=== PATIENT | male | born 1995 | race Caucasian/White ===

== ENCOUNTER 2018-03-22 16:59 | Emergency (ER) | payer OTHER, SELFPAY ==
--- NOTE | 2018-03-22 17:08 | DI.RAD.S_ITS ---
PROCEDURE: XR SOFT TISSUE NECK INDICATIONS: foreign body sensation TECHNIQUE: 2 views of the neck were acquired. COMPARISON: None. FINDINGS: Airway: The airway appears patent. Soft tissues: Prevertebral soft tissues are normal in thickness. The epiglottis and aryepiglottic folds appear normal. No soft tissue gas. Bones: No suspicious bony lesions. Visualized cervical spine is normally aligned. IMPRESSION: No gross tissue swelling. Airways patent. No radiopaque foreign body is seen. Dictated by: Jason Cordova M.D. on 03/22/2018 at 17:35 Approved by: Jason Cordova M.D. on 03/22/2018 at 17:37
[2018-03-22 17:10] VITALS: BP 104/71; PULSE 108; RESP 16; TEMP 36.8; O2SAT 100; BMI 22.4
--- NOTE | 2018-03-22 17:14 | PC.NURSE ---
Pt inhaled piece of popcorn into trachea. Bronchospastic type non stop cough. Call to ENT for consult
--- NOTE | 2018-03-22 17:25 | ED.URI ---
HPI - URI/Sore Throat General Chief Complaint: Upper Respiratory Symptoms Stated Complaint: pop corn stuck in throat Time Seen by Provider: 03/22/18 17:04 Source: patient and family Mode of arrival: ambulatory Limitations: no limitations History of Present Illness HPI Narrative: 23-year-old daily smoker presents with his mother and a chief complaint of a foreign body sensation in his airway. He was eating popcorn last night and felt it get stuck in his esophagus. He coughed, choked and gagged and felt a clear but then immediately inhaled into his ?when pipe ?. He has been coughing violently ever since and presents to the emergency department with the ability to eat and drink, denying any difficulty with swallowing but persistent violent coughing quite diaphoretic. Every inspiration result in a coughing spell. Patient denies any fever or chills nor chest pain. MD Complaint: cough Onset (ago): hour(s) Duration: constant Severity: moderate Description of mucous: clear Able to tolerate fluids by mouth: Yes Associated symptoms: denies other symptoms Review of Systems Review of Systems All systems reviewed & are unremarkable except as noted in HPI and below Constitutional Denies chills, Denies fever(s), Denies lethargy and Denies weakness Eyes Denies change in vision, Denies eye discharge, Denies irritation and Denies loss of vision ENT Ears, Nose, Mouth, and Throat: Denies change in voice, Denies neck pain and Denies sore throat Cardiovascular Denies chest pain, Denies irregular heart rhythm, Denies lightheadedness, Denies palpitations, Denies dyspnea, Denies dyspnea on exertion and Denies orthopnea Respiratory Denies cough, Denies dyspnea, Denies dyspnea on exertion and Denies wheezing Gastrointestinal Gastrointestinal: Denies abdominal pain, Denies change in bowel habits, Denies diarrhea, Denies nausea and Denies vomiting Genitourinary Denies hematuria, Denies flank pain, Denies urinary incontinence and Denies urinary urgency Musculoskeletal Denies neck pain Integumentary/Breasts Denies pruritus, Denies erythema, Denies rash and Denies wounds Neurologic Denies confusion, Denies loss of vision and Denies weakness Psychiatric Denies anxiety, Denies confusion, Denies depression, Denies homicidal ideation and Denies suicidal ideation Endocrine Denies palpitations Hematologic/Lymphatic Denies easy bruising Allergic/Immunologic Denies wheezing [facility] Social History Smoking Status: Current every day smoker Exam Narrative Exam Narrative: GENERAL: 23-year-old male in acute distress, violently coughing and diaphoretic HEAD: Atraumatic. Normocephalic. No temporal or scalp tenderness. EYES: Pupils equal round and reactive. Extraocular motions intact. No scleral icterus. No injection or drainage. ENT: Nose without bleeding, purulent drainage or septal hematoma. Throat without erythema, tonsillar hypertrophy or exudate. Uvula midline. Airway patent. No obvious airway foreign body. No subcu emphysema NECK: Trachea midline. No JVD or lymphadenopathy. Supple, nontender, no meningeal signs. CARDIOVASCULAR: Regular rate and rhythm without murmurs, gallops, or rubs. RESPIRATORY: Clear to auscultation. Breath sounds equal bilaterally. No wheezes, rales, or rhonchi. GASTROINTESTINAL: Abdomen soft, non-tender, nondistended. No hepato-splenomegaly, or palpable masses. No guarding. EXTREMITIES: No clubbing, cyanosis, or edema. No joint tenderness, effusion, or edema noted. BACK: Nontender without deformity or crepitance. No flank tenderness. NEURO: AOx3. SKIN: No rash or erythema. Initial Vital Signs Initial Vital Signs: Vital Signs Temperature 98.3 F 03/22/18 17:10 Pulse Rate 108 H 03/22/18 17:10 Respiratory Rate 16 03/22/18 17:10 Blood Pressure 104/71 03/22/18 17:10 Pulse Oximetry 100 03/22/18 17:10 Course Orders Ordered: ED Orders 03/22/18 17:08 XR soft tissue neck Stat Consultations Consultation #1: Discussed case with Dr. Trinidad (ENT) whom is happy to see patient, suggests we send him to [facility] Call to Nilo MANUEL happily accepts patient Patient instructed to remain NPO and proceed directly to [facility] Transfer forms signed and sent with patient. He is driven POV by family to [facility] Vital Signs - 8 hr 03/22/18 17:10 Temperature 98.3 F Pulse Rate 108 H Respiratory Rate 16 Blood Pressure 104/71 Pulse Oximetry 100 MDM - URI/Sore Throat Imaging Data Soft Tissue Neck: Radiologist's impression: [address] [address] XRay Report Signed Patient: Keith Patrick LMR#: [id number] : 1995Acct:[id number] Age/Sex: 23 / MDate of Service: 03/22/18 Loc: ED Accession Number: [id number] Procedure: XR soft tissue neck Ordering Provider: Izaiah Mauricio D.O. PROCEDURE: XR SOFT TISSUE NECK INDICATIONS: foreign body sensation TECHNIQUE: 2 views of the neck were acquired. COMPARISON: None. FINDINGS: Airway: The airway appears patent. Soft tissues: Prevertebral soft tissues are normal in thickness. The epiglottis and aryepiglottic folds appear normal. No soft tissue gas. Bones: No suspicious bony lesions. Visualized cervical spine is normally aligned. IMPRESSION: No gross tissue swelling. Airways patent. No radiopaque foreign body is seen. Dictated by: Jason Cordova M.D. on 03/22/2018 at 17:35 Approved by: Jason Cordova M.D. on 03/22/2018 at 17:37 [facility] Narrative Medical decision making narrative: Patient was suspected foreign body in airway. Patient has been coughing and hacking over the course of the day, is moving appropriate air and has stable vitals. He feels comfortable as does his high lift driver taking him by private auto under the circumstances. Discharge Plan Departure Patient Disposition: [facility] Clinical Impression: Foreign body of trachea Activity Restrictions/Additional Instructions: DO NOT EAT OR DRINK anything until you are seen at [facility] Please proceed directly to the [facility] Emergency Department and tell them Dr. Mauricio has spoken with Dr. Trinidad (ENT) will see you there. Nilo CRAMER has been notified
--- NOTE | 2018-03-22 17:32 | ED_ITS ---
HPI - URI/Sore Throat General Chief Complaint: Upper Respiratory Symptoms Stated Complaint: pop corn stuck in throat Time Seen by Provider: 03/22/18 17:04 Source: patient and family Mode of arrival: ambulatory Limitations: no limitations History of Present Illness HPI Narrative: 23-year-old daily smoker presents with his mother and a chief complaint of a foreign body sensation in his airway. He was eating popcorn last night and felt it get stuck in his esophagus. He coughed, choked and gagged and felt a clear but then immediately inhaled into his ?when pipe ?. He has been coughing violently ever since and presents to the emergency department with the ability to eat and drink, denying any difficulty with swallowing but persistent violent coughing quite diaphoretic. Every inspiration result in a coughing spell. Patient denies any fever or chills nor chest pain. MD Complaint: cough Onset (ago): hour(s) Duration: constant Severity: moderate Description of mucous: clear Able to tolerate fluids by mouth: Yes Associated symptoms: denies other symptoms Review of Systems Review of Systems All systems reviewed & are unremarkable except as noted in HPI and below Constitutional Denies chills, Denies fever(s), Denies lethargy and Denies weakness Eyes Denies change in vision, Denies eye discharge, Denies irritation and Denies loss of vision ENT Ears, Nose, Mouth, and Throat: Denies change in voice, Denies neck pain and Denies sore throat Cardiovascular Denies chest pain, Denies irregular heart rhythm, Denies lightheadedness, Denies palpitations, Denies dyspnea, Denies dyspnea on exertion and Denies orthopnea Respiratory Denies cough, Denies dyspnea, Denies dyspnea on exertion and Denies wheezing Gastrointestinal Gastrointestinal: Denies abdominal pain, Denies change in bowel habits, Denies diarrhea, Denies nausea and Denies vomiting Genitourinary Denies hematuria, Denies flank pain, Denies urinary incontinence and Denies urinary urgency Musculoskeletal Denies neck pain Integumentary/Breasts Denies pruritus, Denies erythema, Denies rash and Denies wounds Neurologic Denies confusion, Denies loss of vision and Denies weakness Psychiatric Denies anxiety, Denies confusion, Denies depression, Denies homicidal ideation and Denies suicidal ideation Endocrine Denies palpitations Hematologic/Lymphatic Denies easy bruising Allergic/Immunologic Denies wheezing [facility] Social History Smoking Status: Current every day smoker Exam Narrative Exam Narrative: GENERAL: 23-year-old male in acute distress, violently coughing and diaphoretic HEAD: Atraumatic. Normocephalic. No temporal or scalp tenderness. EYES: Pupils equal round and reactive. Extraocular motions intact. No scleral icterus. No injection or drainage. ENT: Nose without bleeding, purulent drainage or septal hematoma. Throat without erythema, tonsillar hypertrophy or exudate. Uvula midline. Airway patent. No obvious airway foreign body. No subcu emphysema NECK: Trachea midline. No JVD or lymphadenopathy. Supple, nontender, no meningeal signs. CARDIOVASCULAR: Regular rate and rhythm without murmurs, gallops, or rubs. RESPIRATORY: Clear to auscultation. Breath sounds equal bilaterally. No wheezes , rales, or rhonchi. GASTROINTESTINAL: Abdomen soft, non-tender, nondistended. No hepato-splenomegaly , or palpable masses. No guarding. EXTREMITIES: No clubbing, cyanosis, or edema. No joint tenderness, effusion, or edema noted. BACK: Nontender without deformity or crepitance. No flank tenderness. NEURO: AOx3. SKIN: No rash or erythema. Initial Vital Signs Initial Vital Signs: Vital Signs Temperature 98.3 F 03/22/18 17:10 Pulse Rate 108 H 03/22/18 17:10 Respiratory Rate 16 03/22/18 17:10 Blood Pressure 104/71 03/22/18 17:10 Pulse Oximetry 100 03/22/18 17:10 Course Orders Ordered: ED Orders 03/22/18 17:08 XR soft tissue neck Stat Consultations Consultation #1: Discussed case with Dr. Trinidad (ENT) whom is happy to see patient, suggests we send him to [facility] Call to Nilo MANUEL happily accepts patient Patient instructed to remain NPO and proceed directly to [facility] Transfer forms signed and sent with patient. He is driven POV by family to [facility] Vital Signs - 8 hr 03/22/18 17:10 Temperature 98.3 F Pulse Rate 108 H Respiratory Rate 16 Blood Pressure 104/71 Pulse Oximetry 100 MDM - URI/Sore Throat Imaging Data Soft Tissue Neck: Radiologist's impression: [address] [address] XRay Report Signed Patient: Keith Patrick LMR#: [id number] : 1995Acct:[id number] Age/Sex: 23 / MDate of Service: 03/22/18 Loc: ED Accession Number: [id number] Procedure: XR soft tissue neck Ordering Provider: Izaiah Mauricio D.O. PROCEDURE: XR SOFT TISSUE NECK INDICATIONS: foreign body sensation TECHNIQUE: 2 views of the neck were acquired. COMPARISON: None. FINDINGS: Airway: The airway appears patent. Soft tissues: Prevertebral soft tissues are normal in thickness. The epiglottis and aryepiglottic folds appear normal. No soft tissue gas. Bones: No suspicious bony lesions. Visualized cervical spine is normally aligned. IMPRESSION: No gross tissue swelling. Airways patent. No radiopaque foreign body is seen. Dictated by: Jason Cordova M.D. on 03/22/2018 at 17:35 Approved by: Jason Cordova M.D. on 03/22/2018 at 17:37 [facility] Narrative Medical decision making narrative: Patient was suspected foreign body in airway. Patient has been coughing and hacking over the course of the day, is moving appropriate air and has stable vitals. He feels comfortable as does his truck driver heavy taking him by private auto under the circumstances. Discharge Plan Departure Patient Disposition: [facility] Clinical Impression: Foreign body of trachea Activity Restrictions/Additional Instructions: DO NOT EAT OR DRINK anything until you are seen at [facility] Please proceed directly to the [facility] Emergency Department and tell them Dr. Mauricio has spoken with Dr. Trinidad (ENT) will see you there. Nilo CRAMER has been notified
--- NOTE | 2018-03-22 17:45 | PC.NURSE ---
at bedside. Pt will take POV to [facility] and meet ENT there for further evaluation
[2018-03-22 17:52] VITALS: BP 117/66; PULSE 82; RESP 22; O2SAT 97
[2018-03-22 17:58] VITALS: O2SAT 99
--- NOTE | 2018-03-22 18:03 | PC.NURSE ---
Report called to charlotte Lindquist RN
== END 2018-03-22 18:00 | disposition short-term general hospital (02) ==
PROVIDERS: Emergency Provider Emergency Medicine; Family Provider Pediatrics; PCP Pediatrics
DX: T17.408A Unspecified foreign body in trachea causing other injury, initial encounter (principal)
CPT/HCPCS: 70360; 99282; 99283

== ENCOUNTER 2022-08-14 15:53 | Emergency (ER) | payer OTHER, MEDICAID, SELFPAY ==
[2022-08-14 16:04] VITALS: BP 117/68; PULSE 79; RESP 16; TEMP 36.2; O2SAT 96; BMI 25.7
[2022-08-14 16:37] LABS: COVID19 -Nasal RAPID Negative (Negative)
[2022-08-14 17:10] LABS: Add Manual Diff / Slide Review NO; Basophils Absolute Auto 0 /uL (0-100); Basophils Percent Auto 0.6 % (0-2); Eosinophils Absolute Auto 400 /uL (0-450); Eosinophils Percent Auto 5.8 % (2-4); Hematocrit 40.1 % (41-53); Hemoglobin 14.3 g/dL (13.5-17.5); Lymphocytes Absolute Auto 1700 /uL (1100-4500); Mean Corpuscular HGB Conc 35.5 % (30-36); Mean Corpuscular Hemoglobin 30.9 PG (26-34); Mean Corpuscular Volume 87.1 fL (80-100); Monocytes Absolute Auto 700 /uL (0-900); Monocytes Percent Auto 10.8 % (3-14); Neutrophils Absolute Auto 3800 /uL (1500-7000); Neutrophils Percent Auto 56.8 % (50-75); Platelet Count 250 X10^3/uL (150-400); Red Blood Cell Count 4.61 X10^6/uL (4.5-5.9); Red Cell Distribution Width 12.3 % (11.6-14.8); White Blood Cell Count 6.7 X10^3/uL (4.5-11.0)
[2022-08-14 17:39] LABS: Acetaminophen < 10 ug/mL (10-30); Alanine Aminotransferase 23 IU/L (<50); Albumin Globulin Ratio 1.3 (1.0-2.8); Alkaline Phosphatase 122 U/L (38-126); Aspartate Aminotransferase 31 IU/L (17-59); BUN Creatinine Ratio 23.5 (6-22); Bilirubin Total 0.3 mg/dL (0.2-1.3); Blood Urea Nitrogen 20 mg/dL (9-20); Calcium 9.1 mg/dL (8.4-10.2); Carbon Dioxide 35 mmol/L (22-32); Chloride 100 mmol/L (98-107); Creatine Kinase 95 U/L (55-170); Estimated Glomerular Filt Rate > 60 mL/min (>60); Ethanol (ETOH) < 10 mg/dL; Globulin 3.1 g/dL (1.7-4.1); Glucose 92 mg/dL (70-100); HEMOLYSIS < 15 (0-50); Potassium 4.5 mmol/L (3.4-5.1); Salicylate < 1.0 mg/dL (<20); Sodium 139 mmol/L (137-145); Total Protein 7.1 g/dL (6.3-8.2)
[2022-08-14 17:51] LABS: Free T4, Direct Thyroxine 1.11 ng/dL (0.78-2.19)
--- NOTE | 2022-08-14 18:00 | CM.SWNOTE ---
APPRENTICE ELECTRICIAN Assessment Patient is 27 y/o male who presents to ED via POV with girlfriend seeking rehab referral to seek treatment for fentanyl use. Patient has [facility] Healthy options insurance. APPRENTICE ELECTRICIAN enters room to meet with patient, patient presents A/Ox3 but also quite drowsy,and mumbling his words. 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 Patient endorses recent detox stay at [facility] and patient states he is seeking long-term treatment because after detox he kept using. Patient denies hx of inpatient rehab. Patient denies hx of [facility] outpatient. Patient endorses longest period of sobriety was 6 months about two years ago when he lived in [place]. Patient endorses hx of withdrawals including Diarrhea, stomach cramps, nausea, pain and anxiety. Patient denies hx of seizures. Patient states he is not currently working and wanting to get clean prior to work. Patient endorses hx of having a DOC. Patient endorses he lives in a tiny house on his parents property, patient endorses family and some of his friends as supports. Patient denies HI and SI. APPRENTICE ELECTRICIAN calls several rehabilitation inpatient [facility] facilities. Either facilitiy admissions are closed for business hours or patient's insurance is not accepted. [facility]- Does not accept [place] medicaid [place] - has detox beds but Medicaid does not cover their 21-28 day rehab program [facility]- left [facility]- [facility]- left [facility] - left ED provider meets with patient and patient reports that he was expecting a paper referral for rehab and thought he would d/c from ED and transport self to treatment. APPRENTICE ELECTRICIAN and ED provider enter room together to explain process. APPRENTICE ELECTRICIAN explains that rehab facilities admissions dept are not open at this time or patient's insurance does not cover rehab. Patient endorses preference to d/c to home today with girlfriend and to return to ED tomorrow. ED provider explains the life threatening risks of fentanyl use and recommends that patient not operate a vehicle. APPRENTICE ELECTRICIAN provides patient with list of [facility] outpatient resources. Plan: Patient chooses to d/c to home, patient endorses plan to return to ED when he is ready to seek immediate treatment. DEBORAH TownsendSW
[2022-08-14 18:02] VITALS: BP 123/64; PULSE 74; O2SAT 94
[2022-08-14 18:05] LABS: Thyroid Stimulating Hormone 2.75 uIU/mL (0.47-4.68)
--- NOTE | 2022-08-14 18:26 | ED_ITS ---
HPI - General Adult <Makenzie David PA-C - Last Filed: 08/14/22 18:34> General Chief complaint: Toxicology Problem Stated complaint: needs referral for rehab facility Time Seen by Provider: 08/14/22 16:52 History of Present Illness HPI narrative: 27-year-old male with past medical history substance abuse presents to the ED seeking rehab for detoxing from daily fentanyl use. Patient states he smokes fentanyl daily, has tried stopping but has severe withdrawal symptoms. Patient expresses an interest to clean up and detox. Patient has detoxed once before at [facility], but he states that he was not in the right frame of mind and relapsed right after. Patient also endorses meth use, last use was last week. Patient's last fentanyl use was this morning. Patient states he has used several other recreational drugs including cocaine and heroin, however those were 5 years ago. Patient denies any current injection drug use. Patient denies fevers, chills, chest pain, shortness of breath, nausea, vomiting, abdominal pain, lightheadedness, dizziness, syncope. Patient appears quite somnolent but easily arousable in the ED. Review of Systems <Makenzie David PA-C - Last Filed: 08/14/22 18:34> Review of Systems ROS Unobtainable: All systems reviewed & are unremarkable except as noted in HPI and below Constitutional Constitutional: Denies chills, Denies fatigue, Denies fever(s), Denies frequent falls, Denies lethargy and Denies weakness Eyes Eyes: Denies change in vision, Denies eye discharge, Denies irritation and Denies loss of vision ENT Ears, Nose, Mouth, and Throat: Denies change in voice, Denies dizziness, Denies neck pain, Denies sore throat and Denies throat swelling Cardiovascular Cardiovascular: Denies chest pain, Denies irregular heart rhythm, Denies lightheadedness, Denies palpitations, Denies dyspnea, Denies dyspnea on exertion and Denies orthopnea Respiratory Respiratory: Denies cough, Denies dyspnea, Denies dyspnea on exertion and Denies wheezing Gastrointestinal Gastrointestinal: Denies abdominal pain, Denies change in bowel habits, Denies diarrhea, Denies nausea and Denies vomiting Genitourinary Genitourinary: Denies hematuria, Denies flank pain, Denies urinary incontinence and Denies urinary urgency Musculoskeletal Musculoskeletal: Denies back pain, Denies muscle weakness, Denies neck pain, Denies numbness and Denies tingling Integumentary/Breasts Skin/Breast: Denies pruritus, Denies erythema, Denies rash and Denies wounds Neurologic Neurologic: Denies behavioral changes, Denies confusion, Denies dizziness, Denies frequent falls, Denies loss of vision, Denies numbness, Denies tingling and Denies weakness Psychiatric Psychiatric: Denies anxiety, Denies behavioral changes, Denies confusion, Denies depression, Denies homicidal ideation and Denies suicidal ideation Endocrine Endocrine: Denies fatigue, Denies flushing and Denies palpitations Hematologic/Lymphatic Hematologic/Lymphatic: Denies easy bruising Allergic/Immunologic Allergic/Immunologic: Denies urticaria, Denies throat swelling and Denies wheezing Patient History <Makenzie David PA-C - Last Filed: 08/14/22 18:34> Social History Smoking Status: Current every day smoker Smoking Status: Current every day smoker alcohol intake frequency: a few times a week Substance Use Type: marijuana Exam <Makenzie David PA-C - Last Filed: 08/14/22 18:34> Narrative Exam Narrative: Const General:?cooperative, somnolent but easily aroused [facility] Head:?normal to inspection Ears:?hearing grossly normal bilaterally Nose:?external nose normal Face and sinus:?normal facial exam and sinuses nontender Mouth:?oral mucosae normal Throat:?posterior oropharynx normal Eyes General:?appearance normal, both eyes and all related structures Neck Neck:?normal visual inspection and no lymphadenopathy noted Resp Effort & Inspection:?normal respiratory effort Auscultation:?clear to auscultation bilaterally Cardio Rate:?regular rate Rhythm:?regular rhythm Neuro General: Somnolent but easily aroused, patient oriented x3 Initial Vital Signs Initial Vital Signs: Vital Signs Temperature 97.1 F L 08/14/22 16:04 Pulse Rate 79 08/14/22 16:04 Respiratory Rate 16 08/14/22 16:04 Blood Pressure 117/68 08/14/22 16:04 Pulse Oximetry 96 08/14/22 16:04 Oxygen Delivery Method Room Air 08/14/22 16:04 <Uzair De Guzman DO - Last Filed: 08/14/22 18:38> Initial Vital Signs Initial Vital Signs: Vital Signs Temperature 97.1 F L 08/14/22 16:04 Pulse Rate 79 08/14/22 16:04 Respiratory Rate 16 08/14/22 16:04 Blood Pressure 117/68 08/14/22 16:04 Pulse Oximetry 96 08/14/22 16:04 Oxygen Delivery Method Room Air 08/14/22 16:04 Course <GALLITO Allen Last Filed: 08/14/22 18:34> Orders Ordered: ED Orders 08/14/22 16:11 COVID19 -Nasal RAPID Stat 08/14/22 16:17 Consult to [facility] Reinforcing Bar Setter Stat 08/14/22 16:50 Acetaminophen Stat CK [Creatine Kinase] Stat Complete Blood Count AUTO DIFF Stat Comprehensive Metabolic Panel Stat Ethanol (ETOH) Stat Free T4, Direct Thyroxine Stat MG [Magnesium] Stat Salicylate Stat Thyroid Stimulating Hormone Stat 08/14/22 17:19 EKG-12 Lead Stat Vital Signs Vital signs: Vital Signs - 8 hr 08/14/22 16:04 08/14/22 18:02 Temperature 97.1 F L Pulse Rate 79 74 Respiratory Rate 16 Blood Pressure 117/68 123/64 Pulse Oximetry 96 94 Oxygen Delivery Method Room Air Room Air <Uzair De Guzman DO - Last Filed: 08/14/22 18:38> Orders Ordered: ED Orders 08/14/22 16:11 COVID19 -Nasal RAPID Stat 08/14/22 16:17 Consult to [facility] Reinforcing Bar Setter Stat 08/14/22 16:50 Acetaminophen Stat CK [Creatine Kinase] Stat Complete Blood Count AUTO DIFF Stat Comprehensive Metabolic Panel Stat Ethanol (ETOH) Stat Free T4, Direct Thyroxine Stat MG [Magnesium] Stat Salicylate Stat Thyroid Stimulating Hormone Stat 08/14/22 17:19 EKG-12 Lead Stat Vital Signs Vital signs: Vital Signs - 8 hr 08/14/22 16:04 08/14/22 18:02 Temperature 97.1 F L Pulse Rate 79 74 Respiratory Rate 16 Blood Pressure 117/68 123/64 Pulse Oximetry 96 94 Oxygen Delivery Method Room Air Room Air Medical Decision Making <GALLITO Allen Last Filed: 08/14/22 18:34> Lab Data 08/14/22 16:50 08/14/22 16:50 Labs: Lab Results 08/14/22 08/14/22 08/14/22 Range/Units 16:11 16:50 16:50 WBC 6.7 (4.5-11.0) X10^3/uL RBC 4.61 (4.5-5.9) X10^6/uL Hgb 14.3 (13.5-17.5) g/dL Hct 40.1 L (41-53) % MCV 87.1 (80-100) fL MCH 30.9 (26-34) PG MCHC 35.5 (30-36) % RDW 12.3 (11.6-14.8) % Plt Count 250 (150-400) X10^3/uL Neut % (Auto) 56.8 (50-75) % Lymph % (Auto) 26.0 (25-40) % Harney % (Auto) 10.8 (3-14) % Eos % (Auto) 5.8 H (2-4) % Baso % (Auto) 0.6 (0-2) % Neut # (Auto) 3800 (5509-5067) /uL Lymph # (Auto) 1700 (6493-0695) /uL Harney # (Auto) 700 (0-900) /uL Eos # (Auto) 400 (0-450) /uL Baso # (Auto) 0 (0-100) /uL Sodium 139 (137-145) mmol/L Potassium 4.5 (3.4-5.1) mmol/L Chloride 100 (98-107) mmol/L Carbon Dioxide 35 H (22-32) mmol/L BUN 20 (9-20) mg/dL Creatinine 0.85 (0.66-1.25) mg/dL Estimated GFR > 60 (>60) mL/min BUN/Creatinine Ratio 23.5 H (6-22) Glucose 92 (70-100) mg/dL Calcium 9.1 (8.4-10.2) mg/dL Magnesium (1.6-2.3) mg/dL Total Bilirubin 0.3 (0.2-1.3) mg/dL AST 31 (17-59) IU/L ALT 23 (<50) IU/L Alkaline Phosphatase 122 (38-126) U/L Total Creatine Kinase (55-170) U/L Total Protein 7.1 (6.3-8.2) g/dL Albumin 4.0 (3.5-5.0) g/dL Globulin 3.1 (1.7-4.1) g/dL Albumin/Globulin Ratio 1.3 (1.0-2.8) TSH (0.47-4.68) uIU/mL Free T4 (0.78-2.19) ng/dL Salicylates < 1.0 (<20) mg/dL Acetaminophen < 10 (10-30) ug/mL Ethyl Alcohol < 10 ( - 10) mg/dL SARS-CoV-2 (PCR) Negative (Negative) 08/14/22 08/14/22 Range/Units 16:50 16:50 WBC (4.5-11.0) X10^3/uL RBC (4.5-5.9) X10^6/uL Hgb (13.5-17.5) g/dL Hct (41-53) % MCV (80-100) fL MCH (26-34) PG MCHC (30-36) % RDW (11.6-14.8) % Plt Count (150-400) X10^3/uL Neut % (Auto) (50-75) % Lymph % (Auto) (25-40) % Harney % (Auto) (3-14) % Eos % (Auto) (2-4) % Baso % (Auto) (0-2) % Neut # (Auto) (3832-0292) /uL Lymph # (Auto) (5445-4311) /uL Harney # (Auto) (0-900) /uL Eos # (Auto) (0-450) /uL Baso # (Auto) (0-100) /uL Sodium (137-145) mmol/L Potassium (3.4-5.1) mmol/L Chloride (98-107) mmol/L Carbon Dioxide (22-32) mmol/L BUN (9-20) mg/dL Creatinine (0.66-1.25) mg/dL Estimated GFR (>60) mL/min BUN/Creatinine Ratio (6-22) Glucose (70-100) mg/dL Calcium (8.4-10.2) mg/dL Magnesium 2.0 (1.6-2.3) mg/dL Total Bilirubin (0.2-1.3) mg/dL AST (17-59) IU/L ALT (<50) IU/L Alkaline Phosphatase (38-126) U/L Total Creatine Kinase 95 (55-170) U/L Total Protein (6.3-8.2) g/dL Albumin (3.5-5.0) g/dL Globulin (1.7-4.1) g/dL Albumin/Globulin Ratio (1.0-2.8) TSH 2.75 (0.47-4.68) uIU/mL Free T4 1.11 (0.78-2.19) ng/dL Salicylates (<20) mg/dL Acetaminophen (10-30) ug/mL Ethyl Alcohol ( - 10) mg/dL SARS-CoV-2 (PCR) (Negative) MDM Narrative Medical decision making narrative: 27-year-old male with past medical history substance abuse presents to the ED seeking rehab for detoxing from daily fentanyl use. Discussed with patient that we can transfer him to a detox facility tonight directly from the ED, however patient defers that option since he was under the impression that he would leave the ED with a referral, go home and then proceed to the detox facility himself. Patient states that he is unable to go directly from the ED today since his girlfriend is waiting outside in his car. Patient verbalizes understanding that he will need to go directly from here, agrees to come back tomorrow morning after making the appropriate arrangements. Discussed with patient that he is somnolent in the ED and that he is not fit to drive or operate machinery in the state. Also discussed the dangers of overdosing on fentanyl or using fentanyl laced with other dangerous substances, including coma and . Patient agrees and states that his girlfriend can drive him home tonight. ED return pr ecautions discussed with patient, patient verbalized understanding. Medical records reviewed: Yes <Uzair De Guzman, DO - Last Filed: 08/14/22 18:38> Lab Data Labs: Lab Results 08/14/22 08/14/22 08/14/22 Range/Units 16:11 16:50 16:50 WBC 6.7 (4.5-11.0) X10^3/uL RBC 4.61 (4.5-5.9) X10^6/uL Hgb 14.3 (13.5-17.5) g/dL Hct 40.1 L (41-53) % MCV 87.1 (80-100) fL MCH 30.9 (26-34) PG MCHC 35.5 (30-36) % RDW 12.3 (11.6-14.8) % Plt Count 250 (150-400) X10^3/uL Neut % (Auto) 56.8 (50-75) % Lymph % (Auto) 26.0 (25-40) % Harney % (Auto) 10.8 (3-14) % Eos % (Auto) 5.8 H (2-4) % Baso % (Auto) 0.6 (0-2) % Neut # (Auto) 3800 (5232-4962) /uL Lymph # (Auto) 1700 (8131-5957) /uL Harney # (Auto) 700 (0-900) /uL Eos # (Auto) 400 (0-450) /uL Baso # (Auto) 0 (0-100) /uL Sodium 139 (137-145) mmol/L Potassium 4.5 (3.4-5.1) mmol/L Chloride 100 (98-107) mmol/L Carbon Dioxide 35 H (22-32) mmol/L BUN 20 (9-20) mg/dL Creatinine 0.85 (0.66-1.25) mg/dL Estimated GFR > 60 (>60) mL/min BUN/Creatinine Ratio 23.5 H (6-22) Glucose 92 (70-100) mg/dL Calcium 9.1 (8.4-10.2) mg/dL Magnesium (1.6-2.3) mg/dL Total Bilirubin 0.3 (0.2-1.3) mg/dL AST 31 (17-59) IU/L ALT 23 (<50) IU/L Alkaline Phosphatase 122 (38-126) U/L Total Creatine Kinase (55-170) U/L Total Protein 7.1 (6.3-8.2) g/dL Albumin 4.0 (3.5-5.0) g/dL Globulin 3.1 (1.7-4.1) g/dL Albumin/Globulin Ratio 1.3 (1.0-2.8) TSH (0.47-4.68) uIU/mL Free T4 (0.78-2.19) ng/dL Salicylates < 1.0 (<20) mg/dL Acetaminophen < 10 (10-30) ug/mL Ethyl Alcohol < 10 ( - 10) mg/dL SARS-CoV-2 (PCR) Negative (Negative) 08/14/22 08/14/22 Range/Units 16:50 16:50 WBC (4.5-11.0) X10^3/uL RBC (4.5-5.9) X10^6/uL Hgb (13.5-17.5) g/dL Hct (41-53) % MCV (80-100) fL MCH (26-34) PG MCHC (30-36) % RDW (11.6-14.8) % Plt Count (150-400) X10^3/uL Neut % (Auto) (50-75) % Lymph % (Auto) (25-40) % Harney % (Auto) (3-14) % Eos % (Auto) (2-4) % Baso % (Auto) (0-2) % Neut # (Auto) (1361-1052) /uL Lymph # (Auto) (6128-9378) /uL Harney # (Auto) (0-900) /uL Eos # (Auto) (0-450) /uL Baso # (Auto) (0-100) /uL Sodium (137-145) mmol/L Potassium (3.4-5.1) mmol/L Chloride (98-107) mmol/L Carbon Dioxide (22-32) mmol/L BUN (9-20) mg/dL Creatinine (0.66-1.25) mg/dL Estimated GFR (>60) mL/min BUN/Creatinine Ratio (6-22) Glucose (70-100) mg/dL Calcium (8.4-10.2) mg/dL Magnesium 2.0 (1.6-2.3) mg/dL Total Bilirubin (0.2-1.3) mg/dL AST (17-59) IU/L ALT (<50) IU/L Alkaline Phosphatase (38-126) U/L Total Creatine Kinase 95 (55-170) U/L Total Protein (6.3-8.2) g/dL Albumin (3.5-5.0) g/dL Globulin (1.7-4.1) g/dL Albumin/Globulin Ratio (1.0-2.8) TSH 2.75 (0.47-4.68) uIU/mL Free T4 1.11 (0.78-2.19) ng/dL Salicylates (<20) mg/dL Acetaminophen (10-30) ug/mL Ethyl Alcohol ( - 10) mg/dL SARS-CoV-2 (PCR) (Negative) Discharge Plan Departure Patient Disposition: Home Clinical Impression: Fentanyl poisoning Instructions: DI for Substance Use Disorder Activity Restrictions/Additional Instructions: You were evaluated in the ED today for fentanyl dependence and the need for claudine ab to detox from the fentanyl. We are able to transfer you to a detox facility directly from the ED, however you have declined this option since you have your car and girlfriend here. We are unable to give you a referral that allows you to leave the ED today and then seek rehab. You have agreed to return tomorrow morning after having made adequate arrangements so you will be able to proceed from the ED to the detox center. In the ED, you appear very sleepy, therefore it will be unsafe for you to drive or operate machinery in this state. Please arrange for appropriate transport back home. Please return to the ED if you experience trouble breathing, chest pain. Referrals: Arnaud Brown MD [Primary Care Provider] - Stand Alone Forms: Patient Portal/API <Uzair De Guzman DO - Last Filed: 08/14/22 18:38> [facility] Dr De Guzman Co-Sign Statement: I was available for consultation during this patient's emergency department visit. This chart is signed by myself for administrative purposes only. I did not have direct contact with this patient during this visit. They were seen independently by the APC.
== END 2022-08-14 18:06 | disposition home or self-care (01) ==
PROVIDERS: Emergency Medicine; Emergency Provider Student in an Organized Health Care Education/Training Program; Family Provider Pediatrics; PCP Pediatrics
DX: F15.10 Other stimulant abuse, uncomplicated (principal); T40.411A Poisoning by fentanyl or fentanyl analogs, accidental (unintentional), initial encounter; R07.9 Chest pain, unspecified; Z20.822 Contact with and (suspected) exposure to COVID-19
CPT/HCPCS: 36415; 80053; 80320; 80329; 82550; 83735; 84439; 84443; 85025; 87635; 93005; 99283; 99284; C9803; G0480

== ENCOUNTER 2022-08-16 08:20 | Emergency (ER) | payer OTHER, MEDICAID, SELFPAY ==
[2022-08-16 08:28] VITALS: PULSE 80; O2SAT 94
[2022-08-16 08:29] VITALS: BP 127/75; PULSE 77; RESP 16; TEMP 36.7; O2SAT 94; BMI 26.4
[2022-08-16 08:30] VITALS: PULSE 76; O2SAT 94
[2022-08-16 09:00] VITALS: PULSE 73; O2SAT 97
--- NOTE | 2022-08-16 09:00 | ED.GENADULT ---
HPI - General Adult General Chief complaint: Toxicology Problem Stated complaint: withdrawls/needs rehab Time Seen by Provider: 08/16/22 08:27 Source: patient Mode of arrival: Ambulatory History of Present Illness HPI narrative: Patient is a 27-year-old male who is here a couple days ago requesting help with rehab and medical clearance. He subsequently went home but returns today again seeking rehab. He does smoke fentanyl and methamphetamine. His last use was morning. He is no specific complaints. He is here seeking help fall or who has substance abuse. Denies alcohol use. Related Data Allergies Allergy/AdvReac Type Severity Reaction Status Date / Time No Known Drug Allergies Allergy Verified 08/16/22 08:32 Review of Systems Review of Systems ROS Unobtainable: All systems reviewed & are unremarkable except as noted in HPI and below Patient History Social History Smoking Status: Current some day smoker Smoking Status: Current some day smoker tobacco type: vaping alcohol intake frequency: a few times a week Substance Use Type: marijuana, opiates and methamphetamine Exam Initial Vital Signs Initial Vital Signs: Vital Signs Pulse Rate 80 08/16/22 08:28 Pulse Oximetry 94 08/16/22 08:28 Const General: cooperative and comfortable HENMT Head: normal to inspection and normocephalic Resp Effort & Inspection: normal respiratory effort Auscultation: clear to auscultation bilaterally Cardio Rate: regular rate Rhythm: regular rhythm GI Inspection: normal to inspection Skin General: no rashes or lesions noted Neuro General: patient alert, patient awake, patient oriented x3 and moves all extremities Extrem General: normal to inspection and capillary refill normal Course Orders Ordered: ED Orders 08/16/22 11:06 Urine Drug Screen, Rapid Stat Vital Signs Vital signs: Vital Signs - 8 hr 08/16/22 12:00 Pulse Rate 94 H Respiratory Rate 18 Blood Pressure 124/82 Pulse Oximetry 99 Oxygen Delivery Method Room Air Medical Decision Making Lab Data Lab results reviewed: Yes I reviewed the patient's lab results. 08/16/22 08:55 08/16/22 08:55 Labs: Lab Results 08/16/22 08/16/22 08/16/22 Range/Units 08:55 08:55 08:55 WBC 5.5 (4.5-11.0) X10^3/uL RBC 4.54 (4.5-5.9) X10^6/uL Hgb 13.8 (13.5-17.5) g/dL Hct 39.4 L (41-53) % MCV 86.8 (80-100) fL MCH 30.3 (26-34) PG MCHC 34.9 (30-36) % RDW 12.4 (11.6-14.8) % Plt Count 233 (150-400) X10^3/uL Neut % (Auto) 55.3 (50-75) % Lymph % (Auto) 30.1 (25-40) % Barren % (Auto) 10.0 (3-14) % Eos % (Auto) 4.0 (2-4) % Baso % (Auto) 0.6 (0-2) % Neut # (Auto) 3100 (6667-4956) /uL Lymph # (Auto) 1700 (8560-0896) /uL Barren # (Auto) 600 (0-900) /uL Eos # (Auto) 200 (0-450) /uL Baso # (Auto) 0 (0-100) /uL Sodium 137 (137-145) mmol/L Potassium 3.8 (3.4-5.1) mmol/L Chloride 102 (98-107) mmol/L Carbon Dioxide 30 (22-32) mmol/L BUN 17 (9-20) mg/dL Creatinine 0.67 (0.66-1.25) mg/dL Estimated GFR > 60 (>60) mL/min BUN/Creatinine Ratio 25.4 H (6-22) Glucose 99 (70-100) mg/dL Calcium 8.6 (8.4-10.2) mg/dL Total Bilirubin 0.3 (0.2-1.3) mg/dL AST 43 (17-59) IU/L ALT 29 (<50) IU/L Alkaline Phosphatase 119 (38-126) U/L Total Protein 6.7 (6.3-8.2) g/dL Albumin 3.7 (3.5-5.0) g/dL Globulin 3.0 (1.7-4.1) g/dL Albumin/Globulin Ratio 1.2 (1.0-2.8) Lipase 23 (23-300) U/L U Opiates 300ng/mL cut (Negative) Ur Oxycodone Screen (Negative) Urine Methadone Screen (Negative) Ur Barbiturates Screen (Negative) U Tricyclic Antidepress (Negative) Ur Phencyclidine Scrn (Negative) Ur Amphetamines Screen (Negative) U Methamphetamines Scrn (Negative) Ur MDMA Scrn (Ecstasy) (Negative) U Benzodiazepines Scrn (Negative) Urine Cocaine Screen (Negative) U Marijuana (THC) Screen (Negative) Ethyl Alcohol < 10 ( - 10) mg/dL SARS-CoV-2 (PCR) Negative (Negative) 08/16/22 Range/Units 11:06 WBC (4.5-11.0) X10^3/uL RBC (4.5-5.9) X10^6/uL Hgb (13.5-17.5) g/dL Hct (41-53) % MCV (80-100) fL MCH (26-34) PG MCHC (30-36) % RDW (11.6-14.8) % Plt Count (150-400) X10^3/uL Neut % (Auto) (50-75) % Lymph % (Auto) (25-40) % Barren % (Auto) (3-14) % Eos % (Auto) (2-4) % Baso % (Auto) (0-2) % Neut # (Auto) (5589-8114) /uL Lymph # (Auto) (4987-4419) /uL Barren # (Auto) (0-900) /uL Eos # (Auto) (0-450) /uL Baso # (Auto) (0-100) /uL Sodium (137-145) mmol/L Potassium (3.4-5.1) mmol/L Chloride (98-107) mmol/L Carbon Dioxide (22-32) mmol/L BUN (9-20) mg/dL Creatinine (0.66-1.25) mg/dL Estimated GFR (>60) mL/min BUN/Creatinine Ratio (6-22) Glucose (70-100) mg/dL Calcium (8.4-10.2) mg/dL Total Bilirubin (0.2-1.3) mg/dL AST (17-59) IU/L ALT (<50) IU/L Alkaline Phosphatase (38-126) U/L Total Protein (6.3-8.2) g/dL Albumin (3.5-5.0) g/dL Globulin (1.7-4.1) g/dL Albumin/Globulin Ratio (1.0-2.8) Lipase (23-300) U/L U Opiates 300ng/mL cut Negative (Negative) Ur Oxycodone Screen Negative (Negative) Urine Methadone Screen Negative (Negative) Ur Barbiturates Screen Negative (Negative) U Tricyclic Antidepress Negative (Negative) Ur Phencyclidine Scrn Negative (Negative) Ur Amphetamines Screen Positive H (Negative) U Methamphetamines Scrn Positive H (Negative) Ur MDMA Scrn (Ecstasy) Negative (Negative) U Benzodiazepines Scrn Negative (Negative) Urine Cocaine Screen Negative (Negative) U Marijuana (THC) Screen Positive H (Negative) Ethyl Alcohol ( - 10) mg/dL SARS-CoV-2 (PCR) (Negative) Urine Dip Bedside Urine Glucose Negative Bedside Urine Bilirubin - Negative Bedside Urine Ketone - Negative Urine Specific Elmer 1.015 Bedside Urine Occult Blood - Negative Bedside Urine pH 6.0 Bedside Urine Protein - Negative Bedside Urine Urobilinogen - Negative Bedside Urine Nitrite - Negative Bedside Urine Leukocytes - Negative Esterase Point of care testing: Urine Dip Bedside Urine Glucose Negative Bedside Urine Bilirubin - Negative Bedside Urine Ketone - Negative Urine Specific Elmer 1.015 Bedside Urine Occult Blood - Negative Bedside Urine pH 6.0 Bedside Urine Protein - Negative Bedside Urine Urobilinogen - Negative Bedside Urine Nitrite - Negative Bedside Urine Leukocytes - Negative Esterase MDM Narrative Medical decision making narrative: Patient arrived calm and collected. He did admit to smoking fentanyl and methamphetamine this morning. His urinalysis confirms the use of methamphetamine and fentanyl. I discuss this with the patient. He is medically cleared. We will attempt to find placement per his request. Prior to our ability to do this the patient left the emergency department. He was not discharge. He was not given discharge instructions. The patient eloped. Discharge Plan Departure Patient Disposition: Left Against Medical Advice Clinical Impression: Methamphetamine abuse, Opioid abuse, Left against medical advice Stand Alone Forms: Against Medical Advice
[2022-08-16 09:12] LABS: Add Manual Diff / Slide Review NO; Basophils Absolute Auto 0 /uL (0-100); Basophils Percent Auto 0.6 % (0-2); Eosinophils Absolute Auto 200 /uL (0-450); Hematocrit 39.4 % (41-53); Hemoglobin 13.8 g/dL (13.5-17.5); Lymphocytes Absolute Auto 1700 /uL (1100-4500); Lymphocytes Percent Auto 30.1 % (25-40); Mean Corpuscular HGB Conc 34.9 % (30-36); Mean Corpuscular Hemoglobin 30.3 PG (26-34); Mean Corpuscular Volume 86.8 fL (80-100); Monocytes Absolute Auto 600 /uL (0-900); Neutrophils Absolute Auto 3100 /uL (1500-7000); Neutrophils Percent Auto 55.3 % (50-75); Platelet Count 233 X10^3/uL (150-400); Red Blood Cell Count 4.54 X10^6/uL (4.5-5.9); Red Cell Distribution Width 12.4 % (11.6-14.8); White Blood Cell Count 5.5 X10^3/uL (4.5-11.0)
[2022-08-16 09:37] LABS: Alanine Aminotransferase 29 IU/L (<50); Albumin 3.7 g/dL (3.5-5.0); Albumin Globulin Ratio 1.2 (1.0-2.8); Alkaline Phosphatase 119 U/L (38-126); Aspartate Aminotransferase 43 IU/L (17-59); BUN Creatinine Ratio 25.4 (6-22); Bilirubin Total 0.3 mg/dL (0.2-1.3); Blood Urea Nitrogen 17 mg/dL (9-20); Calcium 8.6 mg/dL (8.4-10.2); Carbon Dioxide 30 mmol/L (22-32); Chloride 102 mmol/L (98-107); Estimated Glomerular Filt Rate > 60 mL/min (>60); Ethanol (ETOH) < 10 mg/dL; Glucose 99 mg/dL (70-100); HEMOLYSIS < 15 (0-50); Lipase 23 U/L (23-300); Potassium 3.8 mmol/L (3.4-5.1); Sodium 137 mmol/L (137-145); Total Protein 6.7 g/dL (6.3-8.2)
[2022-08-16 09:48] LABS: COVID19 -Nasal RAPID Negative (Negative)
[2022-08-16 11:44] LABS: UR Morphine/Opiate cutoff 300 Negative (Negative); Ur Creatinine Normal (Normal); Ur Specific Gravity Normal (Normal); Urine Amphetamines Positive (Negative); Urine Barbiturates Negative (Negative); Urine Benzodiazepines Negative (Negative); Urine Cocaine Negative (Negative); Urine MDMA Negative (Negative); Urine Methadone Negative (Negative); Urine Methamphetamines Positive (Negative); Urine Oxycodone Negative (Negative); Urine Phencyclidine Negative (Negative); Urine Tetrahydrocannabinol Positive (Negative); Urine Tricyclic Antidepressant Negative (Negative); Urine pH Normal (Normal)
[2022-08-16 12:00] VITALS: BP 124/82; PULSE 94; RESP 18; O2SAT 99
== END 2022-08-16 12:15 | disposition left against medical advice (07) ==
PROVIDERS: Emergency Provider Emergency Medicine; Family Provider Pediatrics; PCP Pediatrics
DX: F15.10 Other stimulant abuse, uncomplicated (principal); F11.10 Opioid abuse, uncomplicated; Z20.822 Contact with and (suspected) exposure to COVID-19
CPT/HCPCS: 36415; 80053; 80305; 80320; 81003; 83690; 85025; 87635; 99283; 99284; C9803